=== PATIENT | female | born 1990 | race Asian ===

== ENCOUNTER 2024-11-07 17:21 | Emergency (ER) | payer BC ==
[~2024-11-07] VITALS: Ht 160 cm; Wt 54.4 kg
[2024-11-07 17:24] VITALS: O2SAT 97
[2024-11-07 17:42] VITALS: BP 139/91; PULSE 72; RESP 16; TEMP 36.9; O2SAT 99
== END 2024-11-07 17:51 | disposition left against medical advice (07) ==
LOC: ER 17:21
DX: F41.9 Anxiety disorder, unspecified (principal); Z53.21 Procedure and treatment not carried out due to patient leaving prior to being seen by health care provider